=== PATIENT | male | born 1995 | race Two or more races ===

== ENCOUNTER 2019-02-18 17:05 | Emergency (ER) | payer OTHER ==
[~2019-02-18] VITALS: Ht 182.9 cm; Wt 78.0 kg
--- NOTE | 2019-02-18 17:17 | NUR ---
PT BIBSELF FROM FEVER SORE THROAT SINC EMONDAY; PT AAOX4, PT ON MONITOR, VSS, NAD NOTED, PENDING ER PROVIDER SHARAL
[2019-02-18] MEDS ORDERED: ONDANSETRON HCL/PF 4 MG/2 ML VIAL ONE (17:22)
[2019-02-18] MEDS ORDERED: KETOROLAC TROMETHAMINE INJ 30 MG/ML VIAL ONE (17:22)
[2019-02-18] MEDS ORDERED: ONDANSETRON HCL/PF 4 MG/2 ML VIAL IVP ONE (17:30)
[2019-02-18] MEDS ORDERED: IV NS 0.9% 1,000 ML BAG IV ONE (17:30)
[2019-02-18] MEDS ORDERED: KETOROLAC TROMETHAMINE INJ 30 MG/ML VIAL IV ONE (17:30)
--- NOTE | 2019-02-18 17:30 | NUR ---
IV SITE OBTAINED BY BHAVIK STACIE ON RIGHT AC 18G. LABS DRAWN, RAPID INFLUENZA SWABBED AND SENT TO LABS.
[2019-02-18 17:59] LABS: BASOPHILS % (AUTO) 0.3 % (0.0-2.0); HEMATOCRIT 43 % (39-51); HEMOGLOBIN 15.1 g/dL (13.5-17.5); LYMPHOCYTES # (AUTO) 0.9 /CMM (0.8-4.8); LYMPHOCYTES % (AUTO) 10.4 % (20.0-44.0); MEAN CORPUSCULAR HGB CONC 35 g/dl (31.0-36.0); MEAN CORPUSCULAR VOLUME 85 fL (80-96); MONOCYTES # (AUTO) 0.5 /CMM (0.1-1.30); MONOCYTES % (AUTO) 5.5 % (2.0-12.0); NEUTROPHILS # (AUTO) 7.6 /CMM (1.8-8.9); NEUTROPHILS % (AUTO) 83.8 % (43.0-81.0); PLATELET COUNT (AUTO) 217 /CMM (150-450); RED BLOOD CELL COUNT(AUTO) 5.09 MIL/uL (4.5-6.0); WHITE BLOOD COUNT (AUTO) 9.1 K/uL (4.3-11.0)
[2019-02-18 18:08] LABS: CALCIUM, SERUM 9.2 mg/dL (8.5-10.1); POTASSIUM 4.1 mmol/L (3.5-5.1)
[2019-02-18 18:17] LABS: ALBUMIN 4.3 g/dL (3.4-5.0); BILIRUBIN,TOTAL 0.4 mg/dL (0.2-1.0); TOTAL PROTEIN, SERUM 8.1 g/dL (6.4-8.2)
[2019-02-18] MEDS ORDERED: ACETAMINOPHEN ES 500 MG TABLET ONE ×2 (18:49→18:53)
[2019-02-18 18:56] VITALS: BP 128/68
--- NOTE | 2019-02-18 18:56 | NUR ---
Pt given tylenol 1000mg po x1 dt headahce 04/02. pt drop the pill the first time and had to take another dose.
[2019-02-18] MEDS ORDERED: ACETAMINOPHEN 325 MG TABLET PO ONE (19:00)
--- NOTE | 2019-02-18 19:14 | NUR ---
Patient discharged to home in stable condition. Written and verbal after care instructions given. Patient verbalizes understanding of instruction. IV removed. Catheter intact and site benign. Pressure and 4x4 applied to site. No bleeding noted.
[2019-02-21] MEDS ORDERED: PROC5TAB59 PO (16:19)
== END 2019-02-18 19:16 | disposition home or self-care (01) ==
LOC: ER 17:07
DX: B34.9 Viral infection, unspecified (principal)
CPT/HCPCS: 36415; 71045; 80053; 85025; 87804 ×2; 96361; 96374; 96375; 99284; J1885; J2405; J7030; 87400

== ENCOUNTER 2019-02-18 23:29 | Inpatient (IN) | payer OTHER ==
[~2019-02-18] VITALS: Ht 210.8 cm; Wt 83.0 kg
--- NOTE | 2019-02-18 23:40 | NUR ---
PT BIBFAMILY C/O "NAUSEA VOMITTING. 7PM TODAY. DIZZY" -SOB -ACUTE DISTRESS. AOX4. NAD NOTED. RESP EVEN AND UNLABORED. PT ON MONITOR IN BED 9 WITH FAMILY AT BEDSIDE. WILL CONTINUE TO MONITOR.
[2019-02-19] MEDS ORDERED: ONDANSETRON HCL/PF 4 MG/2 ML VIAL IVP ONE
[2019-02-19] MEDS ORDERED: ONDANSETRON HCL/PF 4 MG/2 ML VIAL ONE (00:06)
[2019-02-19 00:18] LABS: BASOPHILS % (AUTO) 0.2 % (0.0-2.0); HEMATOCRIT 42 % (39-51); HEMOGLOBIN 14.3 g/dL (13.5-17.5); LYMPHOCYTES # (AUTO) 0.8 /CMM (0.8-4.8); LYMPHOCYTES % (AUTO) 7.1 % (20.0-44.0); MEAN CORPUSCULAR HGB CONC 34 g/dl (31.0-36.0); MEAN CORPUSCULAR VOLUME 86 fL (80-96); MONOCYTES # (AUTO) 0.4 /CMM (0.1-1.30); NEUTROPHILS # (AUTO) 9.8 /CMM (1.8-8.9); NEUTROPHILS % (AUTO) 88.7 % (43.0-81.0); PLATELET COUNT (AUTO) 221 /CMM (150-450); RED BLOOD CELL COUNT(AUTO) 4.86 MIL/uL (4.5-6.0)
--- NOTE | 2019-02-19 00:21 | NUR ---
PT TAKEN TO RADIOLOGY VIA [facility]
[2019-02-19 00:27] LABS: CALCIUM, SERUM 9.1 mg/dL (8.5-10.1); CREATININE 1.1 mg/dL (0.6-1.3); POTASSIUM 4.2 mmol/L (3.5-5.1)
[2019-02-19] MEDS ORDERED: DIAZEPAM 5 MG/ML 2 ML DISP.SYRIN IV ONE (00:30)
[2019-02-19 00:32] LABS: ALBUMIN 4.2 g/dL (3.4-5.0); BILIRUBIN,DIRECT 0.1 mg/dL (0.0-0.2); BILIRUBIN,TOTAL 0.6 mg/dL (0.2-1.0); TOTAL PROTEIN, SERUM 7.9 g/dL (6.4-8.2)
[2019-02-19] MEDS ORDERED: LORAZEPAM INJ 2 MG/ML VIAL IV ONE (01:00)
[2019-02-19] MEDS ORDERED: LORAZEPAM INJ 2 MG/ML VIAL ONE (01:15)
[2019-02-19] MEDS ORDERED: IV NS 0.9% 1,000 ML BAG IV ONE ×2 (01:30)
--- NOTE | 2019-02-19 01:40 | NUR ---
REPORT GIVEN TO ARSENIO RODRIGUEZ FOR HERNÁN
--- NOTE | 2019-02-19 02:10 | NUR ---
RN ADMITTING NOTES PATIENT ARRIVED ON THE UNIT AT 0150. PATIENT IS ACCOMPANIED BY HIS MOTHER, KELVIN. CHIEF COMPLAINT IS NAUSEA, VOMITING, AND DIZZINESS. PATIENT IS A/O X4. PATIENT IS ABLE TO VERBALIZE NEEDS. PATIENT HAS NO SIGNS OF ACUTE DISTRESS. PATIENT DENIES SHORTNESS OF BREATH. PATIENT DENIES PAIN. IV SITE: LAC G#20 PATENT AND INTACT. PATIENT AND MOTHER REFUSED ASSESSMENT OF THE SKIN AT THIS TIME. THEY STATE HE DOES NOT HAVE ANY OPEN WOUNDS OR NON-INTACT SKIN, SKIN IS WNL. SAFETY PRECAUTIONS IMPLEMENTED: CALL LIGHT WITHIN REACH. WILL CONTINUE TO MONITOR PATIENT THROUGHOUT THE SHIFT.
[2019-02-19 02:15] VITALS: BP 123/67
[2019-02-19] MEDS ORDERED: ONDANSETRON HCL/PF 4 MG/2 ML VIAL IV PRN (02:30)
[2019-02-19] MEDS ORDERED: ZOLPIDEM TARTRATE 5 MG TABLET PO PRN (02:30)
[2019-02-19] MEDS ORDERED: IV D5/ 0.9% NACL 1,000 ML IV SCH (02:30)
[2019-02-19] MEDS ORDERED: ACETAMINOPHEN 325 MG TABLET PO PRN (02:30)
[2019-02-19 02:56] VITALS: BP 123/67
[2019-02-19 06:21] LABS: APPEARANCE,URINE SL CLOUDY (CLEAR); BILIRUBIN,URINE NEGATIVE (NEGATIVE); BLOOD, URINE NEGATIVE Ery/uL (NEGATIVE); COLOR,URINE DARK YELLO (YELLOW); KETONES,URINE 3+ (NEGATIVE); LEUKOCYTE ESTERASE ,URINE NEGATIVE (NEGATIVE); NITRITE, URINE NEGATIVE (NEGATIVE); PROTEIN,URINE NEGATIVE (NEGATIVE); UGLUCOSE NEGATIVE (NEGATIVE); UROBILINOGEN,URINE 0.2 EU/dL (0.2)
[2019-02-19 06:30] LABS: BASOPHILS % (AUTO) 0.2 % (0.0-2.0); HEMATOCRIT 36 % (39-51); HEMOGLOBIN 12.5 g/dL (13.5-17.5); LYMPHOCYTES # (AUTO) 0.8 /CMM (0.8-4.8); MEAN CORPUSCULAR HGB CONC 35 g/dl (31.0-36.0); MEAN CORPUSCULAR VOLUME 84 fL (80-96); MONOCYTES # (AUTO) 0.5 /CMM (0.1-1.30); MONOCYTES % (AUTO) 5.9 % (2.0-12.0); NEUTROPHILS # (AUTO) 6.4 /CMM (1.8-8.9); NEUTROPHILS % (AUTO) 82.9 % (43.0-81.0); PLATELET COUNT (AUTO) 185 /CMM (150-450); RED BLOOD CELL COUNT(AUTO) 4.27 MIL/uL (4.5-6.0); WHITE BLOOD COUNT (AUTO) 7.7 K/uL (4.3-11.0)
--- NOTE | 2019-02-19 06:31 | NUR ---
RN CLOSING NOTES PATIENT IS RESTING IN BED. PATIENT HAS NO SIGNS OF ACUTE DISTRESS. NO SIGNS OF SOB. NO FACIAL GRIMACING. SAFETY PRECAUTIONS IMPLEMENTED. CALL LIGHT WITHIN REACH. WILL ENDORSE TO ONCOMING AM RN.
[2019-02-19 06:54] LABS: ALBUMIN 3.4 g/dL (3.4-5.0); BILIRUBIN,TOTAL 0.4 mg/dL (0.2-1.0); CREATININE 0.8 mg/dL (0.6-1.3); MAGNESIUM 1.7 mg/dL (1.8-2.4); POTASSIUM 3.8 mmol/L (3.5-5.1); TOTAL PROTEIN, SERUM 6.4 g/dL (6.4-8.2)
[2019-02-19 07:18] LABS: BACTERIA,URINE Few /HPF (None Seen); HYALINE CASTS, URINE Rare /LPF (None Seen); RBC,URINE 0-2 /HPF (0-2); SQUAMOUS EPITHELIAL CELL,UR Few /HPF (None Seen); WBC,URINE 0-2 /HPF (0-3)
--- NOTE | 2019-02-19 07:48 | NUR ---
RN MS OPENING NOTES RECEIVED PATIENT IN BED AWAKE, ALERT AND ORIENTED X4, ABLE TO MAKE NEEDS KNOWN. BREATHING EVEN AND UNLABORED. NO SOB NOTED. TOLERATING ROOM AIR. NO COMPLAINTS OF PAIN OR DISCOMFORT AT THIS TIME. IV ON LAC GAUGE#20 INTACT AND PATENT. SKIN DRY AND WARM TO TOUCH. SAFETY MEASURES IN PLACE, BED IN LOWEST LOCKED POSITION SR UP X2. CALL LIGHT WITHIN REACH. WILL CONTINUE TO MONITOR.
[2019-02-19 08:00] VITALS: BP 108/43
[2019-02-19] MEDS ORDERED: AZITHROMYCIN 500 MG in IV D5W 250 ML IV SCH ×2 (08:00→09:00)
--- NOTE | 2019-02-19 08:00 | NUR ---
RN NOTES LAB RESULTS REPORTED MAGNESIUM LEVEL 1.5, PHOSPHORUS LEVEL 2.1, AND CALCIUM LEVEL 8.0. MD NOTIFIED. REPLACED WITH MAGNESIUM 1 MG. IN D5 100ML GIVEN X2 BAGS IVPB, AND IVF KCL 20 MEQ IN IV NS 100 ML/HR, PER DR. CANO ORDER. WILL CONTINUE TO MONITOR.
[2019-02-19] MEDS ORDERED: IV D5/ 0.9% NACL 1,000 ML IV PRN (09:13)
[2019-02-19] MEDS ORDERED: IV NS 0.9% 1,000 ML IV PRN (09:30)
[2019-02-19] MEDS: Magnesium 1GM/D5W 100ML PREMIX 100 ML IV SCH ×2 (09:56→11:01)
[2019-02-19] MEDS: PANTOPRAZOLE 40 MG VIAL IV SCH (09:56)
[2019-02-19] MEDS: Potassium Chloride 20 MEQ in IV NS 0.9% 1,000 ML IV PRN ×2 (14:03→23:45)
[2019-02-19] MEDS: PROCHLORPERAZINE EDISYLATE 10 MG/2 ML VIAL IVP PRN ×2 (14:10→20:10)
--- NOTE | 2019-02-19 14:20 | NUR ---
MS RN NOTES PATIENT VOMITTED X1, YELLOWISH LIQUID EMESIS OF APPROXIMATELY 100 ML. COMPAZINE 5MG IVP GIVEN PER MD ORDER. WILL CONTINUE TO MONITOR.
[2019-02-19 15:51] VITALS: BP 114/60
[2019-02-19] MEDS: ACETAMINOPHEN ES 500 MG TABLET PO PRN (16:14)
--- NOTE | 2019-02-19 16:21 | NUR ---
RN NOTES PATIENT TEMPERATURE 100.7. COOLING MEASURES IMPLEMENTED, TYLENOL 500 MG PO PRN GIVEN PER MD ORDER. PT DENIES DISCOMFORT AT THIS TIME. FATHER AT BEDSIDE. WILL CONTINUE TO MONITOR FOR EFFECTIVENESS.
[2019-02-19 16:28] LABS: CALCIUM, SERUM 8.2 mg/dL (8.5-10.1); CREATININE 0.8 mg/dL (0.6-1.3); POTASSIUM 3.9 mmol/L (3.5-5.1)
--- NOTE | 2019-02-19 18:34 | NUR ---
RN NOTES PATIENT TEMP 98.5, VOMITTED 200 ML YELLOWISH CLEAR EMESIS AFTER DRINKING WATER AND APPLE JUICE. NOTIFIED DR. CNAO. NEW ORDERS TO PLACE PT ON NPO. WILL CONTINUE TO MONITOR.
--- NOTE | 2019-02-19 18:43 | NUR ---
RN CLOSING NOTES PATIENT IS RESTING COMFORTABLY IN BED WITH MOTHER AT BEDSIDE. PATIENT DENIES PAIN OR DISCOMFORT AT THIS TIME. IV ACCESS ON LAC G# 20 INFUSING KCL 20 MEQ IN NS AT 100 ML/HR, INFUSING WELL, NO SIGNS AND SYMPTOMS OF INFILTRATION. BREATHING IS EVEN AND UNLABORED TO ROOM AIR WITH AN O2 SAT. 100%. VITAL SIGNS RECORDED AND ARE WNL AT THIS TIME. PATIENT EDUCATION GIVEN TO PATIENT AND MOTHER REGARDING NPO STATUS, BOTH VERBALIZED UNDERSTANDING. SAFETY PRECAUTIONS IMPLEMENTED, BED IN LOWEST LOCKED POSITION WITH SR UP X2, CALL LIGHT WITHIN REACH. WILL ENDORSE TO FLAME ANNEALING MACHINE OPERATOR NURSE FOR HERNÁN.
--- NOTE | 2019-02-19 19:30 | NUR ---
MS RN INITIAL NOTES Patient in bed, awake. Appears weak, stable oxygen saturation on RA, denies pain. Currently NPO, on IVF at 100 ml/hr. Per report N/V controlled with PRN compazine. Maintained safety, will cont to monitor.
[2019-02-19 20:06] VITALS: BP 120/76
[2019-02-19 20:39] VITALS: BP 120/76
[2019-02-20] MEDS: ACETAMINOPHEN ES 500 MG TABLET PO PRN ×3 (04:11→21:11)
--- NOTE | 2019-02-20 06:15 | NUR ---
CLOSING NOTES Patient in bed, stable oxygen saturation on RA. Episode of nausea x1, resolved with PRN Compazine, no vomiting. No BM this shift. NPO except meds, IVF infusing maintained at 100 ml/hr. Ambulates independently, PRN Tylenol for headache, afebrile. Possible discharge home, maintained safety. Will endorse to oncoming RN.
[2019-02-20 08:00] VITALS: BP 125/82
--- NOTE | 2019-02-20 08:02 | NUR ---
MS/RN Patient received Patient received from night court magistrate. A/O X4, vital signs stable, denies any pain or discomfort at this time. No nausea or vomiting, does still however complain of feeling lightheaded and dizzy when ambulating. IV fluidtration s infusing at 100ml/hr, via left AC 20g, no signs of infiltration seen. Patient and mother updated as to plan of care. Call light within reach, will continue to monitor.
[2019-02-20] MEDS: PANTOPRAZOLE 40 MG VIAL IV SCH (08:19)
[2019-02-20] MEDS: PROCHLORPERAZINE EDISYLATE 10 MG/2 ML VIAL IVP PRN ×2 (08:19→15:52)
--- NOTE | 2019-02-20 08:50 | NUR ---
MS/RN Vomiting Patient vomiting 200ml, compazine IVP administered, will monitor effectiveness.
--- NOTE | 2019-02-20 09:46 | NUR ---
MS/RN S/B Dr Chen Seen by Dr Ariza - -Acute gastroenteritis, likely viral, continue with IV hydration and anti nausea medications as needed. Discontinue zofran and use compazine. -Headache - frontal head without meningeal signs. -GI consult ordered.
--- NOTE | 2019-02-20 10:15 | NUR ---
MS/RN Headache C/O headache 06/02, tylenol extra strength 500mg administered as ordered. Will monitor effectiveness.
[2019-02-20] MEDS: Potassium Chloride 20 MEQ in IV NS 0.9% 1,000 ML IV PRN ×2 (10:35→21:37)
--- NOTE | 2019-02-20 11:15 | NUR ---
MS/RN Pain reassessment Pain appears controlled, patient sleeping at this time.
--- NOTE | 2019-02-20 14:33 | NUR ---
MS/RN Nausea Patient complaining of nausea following eating bowel of clear liquid soup, no vomiting and medication not needed at this time.
--- NOTE | 2019-02-20 15:55 | NUR ---
MS/RN S/B Dr Myers Seen by GI - in agreement that nausea/vomiting due to viral gastroenteritis. Continue with IVF, advance diet to sot, low fat lactose free diet.
[2019-02-20 16:00] VITALS: BP 134/84
--- NOTE | 2019-02-20 16:17 | NUR ---
MS/RN Vomiting Vomited X1 100ml, compazine administered IVP, will monitor effectiveness.
[2019-02-20 16:21] VITALS: BP 134/84
--- NOTE | 2019-02-20 18:05 | NUR ---
MS/RN End note Patient able to tolerate clear liquid at this time without any nausea or vomiting, encouraged to take small sips of chicken broth and to take time with broth. All questions and concerns addressed. IV fluids continue to infuse at 100ml/hr without any signs of infiltration. Will continue to monitor and endorse to overnight houseperson.
--- NOTE | 2019-02-20 19:15 | NUR ---
RN NOTES RECEIVED PATIENT AWAKE, ALERT ORIENTED X 4, WEAK, MOVING AND AMBULATING SLOWLY, NO SIGNS OF ACUTE RESPIRATORY DISTRESS NOTED, SAFETY MEASURES IN PLACED, PERIPHERAL IV LINE ON HIS LEFT FOREARM INTACT AND PATENT,IVF OF NS + 20 MEQS OF KCL RUNNING AT 100 ML / HR INFUSING WELL. FAMILY AT BEDSIDE AT THIS TIME, .ALL NEEDS ATTENDED. WILL MONITOR ACCORDINGLY.
[2019-02-20 20:00] VITALS: BP 138/93
--- NOTE | 2019-02-20 20:20 | NUR ---
RN NOTES MOVED TO ROOM 315-2.
--- NOTE | 2019-02-20 21:11 | NUR ---
RN NOTES PATIENT COMPLAINED OF HEADACHE 06/02, TYLENOL GIVEN ORDERED, WILL MONITOR ACCORDINGLY.
--- NOTE | 2019-02-20 21:20 | NUR ---
RN NOTES PATIENT COMPLAINED OF PAIN AROUND THE IV SITE. INSERTED A NEW SITE, NEW IV ACCESS IS ON HIS RIGHT FOREARM G #22, INTACT AND PATENT, IVF INFUSING, TOLERATED WELL. WILL MONITOR ACCORDINGLY.
--- NOTE | 2019-02-20 22:08 | NUR ---
RN NOTES PATIENT WENT TO THE RESTROOM, AMBULATING WITH STEADY GAIT, ALL NEEDS ATTENDED, HOOK BACK TO IVF LINE, PATENT AND INFUSING WELL.
--- NOTE | 2019-02-20 23:05 | NUR ---
RN NOTES PATIENT COMPLAINED OF INSOMNIA, REQUESTED A SLEEPING PILL. AMBIEN 5 MG PO GIVEN PER MD ORDERED FOR PRN. WILL CONTINUE TO MONITOR.
--- NOTE | 2019-02-21 00:05 | NUR ---
RN NOTES PATIENT IS SLEEPING COMFORTABLY AT THIS TIME, AMBIEN EFFECTIVE, , MOM AT THE BEDSIDE.
--- NOTE | 2019-02-21 04:10 | NUR ---
RN NOTES PATIENT WENT TO THE RESTROOM, VOIDING FREELY, WITH STEADY GAIT. REQUESTING STRAWBERRIES, BANANA, GRAPES AND APPLES FOR BREAKFAST. INFORMED CHARGE NURSE AND PEDIATRIC RN REGARDING HIS REQUEST, WILL CALL DIETARY / KITCHEN ONCE OPEN. MONITORED CONTINUOUSLY.
--- NOTE | 2019-02-21 05:15 | NUR ---
RN NOTES CHARGE NURSE CALLED DIETARY / KITCHEN REGARDING PATIENT'S REQUEST FOR BREAKFAST, STRAWBERRIES NO AVAILABLE FOR BREAKFAST, INFORMED PATIENT. PATIENT IS RESTING COMFORTABLY AT THIS TIME.
--- NOTE | 2019-02-21 06:50 | NUR ---
RN NOTES ABLE TO REST AND SLEEP WITH SHORT INTERVALS, ALL NEEDS ATTENDED AND MET, KEPT COMFORTABLE, WILL ENDORSE TO AM NURSE FOR CONTINUITY OF CARE. PER DR. DONOVAN, TO CONTINUE CONSERVATIVE MANAGEMENT, DIET TOLERATED, LOW FAT, LACTOSE FREE, ENCOURAGE SLOW CONSUMPTION. PATIENT VERBALIZES UNDERSTANDING.
[2019-02-21] MEDS: Potassium Chloride 20 MEQ in IV NS 0.9% 1,000 ML IV PRN (07:05)
[2019-02-21] MEDS: PROCHLORPERAZINE EDISYLATE 10 MG/2 ML VIAL IVP PRN (07:05)
--- NOTE | 2019-02-21 07:28 | NUR ---
RN NOTES PATIENT COMPLAINED OF NAUSEA, COMPAZINE IV 5MG GIVEN PER MD ORDERED, ENDORSED TO AM NURSE FOR CONTINUITY OF CARE.
--- NOTE | 2019-02-21 07:43 | NUR ---
MS RN OPENING NOTES RECEIVED PT LAYING IN BED WITH HOB SLIGHTLY ELEVATED. PT IS RESTING COMFORTABLY, EASILY AROUSABLE. PT IS A/O X4. RESPIRATIONS ARE EVEN AND UNLABORED, NOT IN ANY ACUTE DISTRESS NOTED. IV SITE TO RFA INTACT, NO INFILTRATION NOTED. DRESSING KEPT CLEAN AND DRY. WHEN ASKED IF PT WAS IN ANY PAIN, PT STATED "I JUST WANT TO REST FOR NOW." SAFETY MEASURES ARE IN PLACE. INSTRUCTED PT TO USE CALL LIGHT WHEN ASSISTANCE IS NEEDED, CALL LIGHT IS LEFT WITHIN REACH. MOM IS AT BEDSIDE. WILL MONITOR THROUGHOUT SHIFT FOR CONTINUITY OF CARE.
[2019-02-21 08:00] VITALS: BP 146/82
[2019-02-21] MEDS: PANTOPRAZOLE 40 MG VIAL IV SCH (08:17)
[2019-02-21] MEDS: ACETAMINOPHEN ES 500 MG TABLET PO PRN (08:24)
--- NOTE | 2019-02-21 08:24 | NUR ---
MS RN NOTES-- PT NOTED WITH ELEVATED TEMP OF 101f. ADMINISTERED TYLENOL 500MG. WILL NOTE EFFECTIVENESS.
--- NOTE | 2019-02-21 08:32 | NUR ---
MS RN NOTES-- PT ATE 2 BANANAS AND OATMEAL. PT VOMITED 100CC, YELLOWISH COLOR. DR. DONOVAN AND DR. CANO MADE AWARE.
--- NOTE | 2019-02-21 08:48 | NUR ---
MS RN NOTES-- RECHECKED TEMP 99.1. WILL CONTINUE TO MONITOR.
--- NOTE | 2019-02-21 09:26 | NUR ---
MS RN NOTES-- RECEIVED A CALL FROM DR. DONOVAN WITH ORDERS TO PLACE PT ON NPO AND FOR SCHEDULED EGD THIS AFTERNOON. PT AND MOTHER MADE AWARE. CONSENTS SIGNED.
[2019-02-21 10:45] LABS: BASOPHILS % (AUTO) 0.4 % (0.0-2.0); HEMATOCRIT 40 % (39-51); LYMPHOCYTES # (AUTO) 1.1 /CMM (0.8-4.8); MEAN CORPUSCULAR HGB CONC 35 g/dl (31.0-36.0); MEAN CORPUSCULAR VOLUME 83 fL (80-96); MONOCYTES # (AUTO) 0.7 /CMM (0.1-1.30); MONOCYTES % (AUTO) 7.4 % (2.0-12.0); NEUTROPHILS # (AUTO) 7.5 /CMM (1.8-8.9); NEUTROPHILS % (AUTO) 80.2 % (43.0-81.0); PLATELET COUNT (AUTO) 242 /CMM (150-450); RED BLOOD CELL COUNT(AUTO) 4.81 MIL/uL (4.5-6.0); WHITE BLOOD COUNT (AUTO) 9.4 K/uL (4.3-11.0)
[2019-02-21 10:53] LABS: CALCIUM, SERUM 9.2 mg/dL (8.5-10.1); CREATININE 0.8 mg/dL (0.6-1.3)
--- NOTE | 2019-02-21 12:30 | NUR ---
MS RN NOTES-- RECEIVED A CALL FROM ANESTHESIOLOGIST IN OR AND STATED THAT EGD NEEDS TO BE RESCHEDULED TO TOMORROW D/T PT EATING BREAKFAST. DR. DONOVAN MADE AWARE.
--- NOTE | 2019-02-21 13:30 | NUR ---
MS RN NOTES-- PT SEEN AND EXAMINED BY DR. DONOVAN AND STATED THAT EGD MAY BE RESCHEDULED TOMORROW, IT IS NOT AN EMERGENCY PROCEDURE. DR. DONOVAN RESUMED DIET ORDERS AND EXPLAINED TO THE PT THAT HE NEEDS TO EAT SLOWLY.
--- NOTE | 2019-02-21 13:35 | NUR ---
MS RN NOTES-- PT STATED THAT HE WILL MAKE A DECISION "SOON" IF HE WANTS TO STAY OR GO HOME. NOTIFIED LINING CLEANER FARNAZ.
--- NOTE | 2019-02-21 15:59 | NUR ---
MS RN NOTES-- PT DECIDED TO GO HOME TODAY AND STATED HE "FEELS A LOT BETTER." DR CANO AND DR. DONOVAN MADE AWARE. NOTIFIED FARNAZ VENDING MACHINE COIN COLLECTOR.
[2019-02-21] MEDS ORDERED: PROC5TAB59 PO (16:19)
--- NOTE | 2019-02-21 16:25 | NUR ---
MS PIECE DYER NOTE PT DISCHARGED TO HOME IN MEDICALLY STABLE CONDITION ACCOMPANIED BY MOTHER IRMA. PT IS A/O X4, AFEBRILE. RESPIRATIONS ARE EVEN AND UNLABORED, NOT IN ANY ACUTE DISTRESS NOTED. PUPILS ARE REACTIVE TO LIGHT, BILATERAL HAND MEDICATION CARE MANAGER ARE STRONG AND EQUAL. ABDOMEN IS SOFT AND NONDISTENDED, BOWEL SOUNDS ARE PRESENT IN ALL 4 QUADRANTS UPON AUSCULTATION. NO BOWEL MOVEMENT TODAY. NO N/V AFTER LUNCH. DENIES ANY BLADDER DISCOMFORT. NO SKIN ISSUES NOTED. PT IS AMBULATORY. IV ACCESS REMOVED, APPLIED PRESSURE AND TOLERATED WELL. ID BANDS REMOVED. EXPLAINED DISCHARGE PAPERWORK TO PT AND MOTHER WITH VERBAL AND WRITTEN AGREEMENT. ALL BELONGINGS SEND WITH PT. PT RECEIVED PRESCRIPTION FOR COMPAZINE 5MG [id number] PRN WITH 10 TABLETS NO REFILLS, PER DR. CANO. CALLED IT IN TO PT'S PHARMACY AT [facility]. PT LEFT IN MEDICALLY STABLE CONDITION.
== END 2019-02-21 16:25 | disposition home or self-care (01) | DRG 392 ==
LOC: ER 23:31 → MED 02-19 01:14
PROVIDERS: ADMIT Internal Medicine; ATTEND Internal Medicine
DX: A08.4 Viral intestinal infection, unspecified (principal); E87.2 Acidosis; E86.0 Dehydration; R51 Headache; K29.70 Gastritis, unspecified, without bleeding
CPT/HCPCS: 36415; 70450-TC; 80048-TC; 80053-TC; 80076-TC; 80305; 81000-TC; 83605-TC; 83735-TC; 84443-TC; 85025-TC; 85730-TC; 87081-TC; 87086-TC; C9113; G0378; J0456; J0780; J2060; J2405; J3475; J3480; J7030; J7042; J7060